=== PATIENT | female | born 1990 | race African-American/Black ===

== ENCOUNTER 2017-05-05 17:56 | Emergency (ER) | payer MEDICAID, OTHER ==
[~2017-05-05] VITALS: Ht 177.8 cm; Wt 131.0 kg
[~2017-05-05 17:56] MED LIST: HUMALOG; LANTIS
[2017-05-05] MEDS ORDERED: ONDANSETRON HCL 4MG/2ML VIAL IV STA (22:43)
[2017-05-05] MEDS ORDERED: SODIUM CHLORIDE 0.9% 1,000 ML IV ONE (22:43)
[2017-05-05] MEDS ORDERED: MORPHINE SULFATE 4 MG/ML CPJ (NOT FOR IM USE) IV STA (22:43)
[2017-05-05 23:22] LABS: CHLORIDE 99 mEq/L (98-107)
[2017-05-05 23:25] LABS: HEMATOCRIT. 43.8 % (36.0-48.0); HEMOGLOBIN. 14.6 g/dL (12.0-16.0); MEAN CORPUSCULAR HEMOGLOBIN 27.8 pg (28.0-32.0); MEAN CORPUSCULAR VOLUME 83.2 fL (81.0-99.0); RED BLOOD CELL COUNT 5.26 mill/uL (4.2-5.4)
[2017-05-05 23:26] LABS: CARBON DIOXIDE 24 mEq/L (21-32); INR 1.1; PROTHROMBIN TIME 10.9 sec (9.4-11.6)
[2017-05-05 23:47] LABS: HCG SCREEN NEGATIVE
[2017-05-06] MEDS ORDERED: INSULIN REGULAR (HUMULIN R) UD 100 UNITS/ML SYR IV ONE
[2017-05-06] MEDS ORDERED: MORPHINE SULFATE 4 MG/ML CPJ (NOT FOR IM USE) IV ONE (00:15)
[2017-05-06] MEDS ORDERED: ONDANSETRON HCL 4MG/2ML VIAL IV ONE (00:15)
[2017-05-06 00:21] LABS: GLUCOSE URINE 3+ (NEGATIVE); KETONES URINE 1+ (NEGATIVE); LEUKOCYTE ESTERASE URINE NEGATIVE (NEGATIVE); NITRITE URINE NEGATIVE (NEGATIVE); OCCULT BLOOD URINE NEGATIVE (NEGATIVE); PROTEIN URINE NEGATIVE (NEGATIVE); SPECIFIC GRAVITY URINE 1.035 (1.005-1.030); UROBILINOGEN URINE 0.2 E.U./dL (0.2-1.0)
[2017-05-06 00:31] LABS: CLARITY URINE CLEAR (CLEAR); COLOR URINE YELLOW (YELLOW)
[2017-05-06 00:40] LABS: *AMPHETAMINES SCREEN URINE NEGATIVE (NEGATIVE); *BARBITURATES SCREEN URINE NEGATIVE (NEGATIVE); *BENZODIAZEPINES SCREEN URINE NEGATIVE (NEGATIVE); *COCAINE SCREEN URINE NEGATIVE (NEGATIVE); METHADONE URINE SCREEN NEGATIVE (NEGATIVE); OPIATES URINE SCREEN NEGATIVE (NEGATIVE); PHENCYCLIDINE URINE SCREEN NEGATIVE (NEGATIVE)
[2017-05-06] MEDS ORDERED: INSULIN REGULAR (HUMULIN R) 300UNITS/3ML IV SCH (00:45)
[2017-05-06 00:54] LABS: CANNABINOID URINE SCREEN PRESUMTIVE POSITIVE (NEGATIVE)
[2017-05-06] MEDS ORDERED: METOCLOPRAMIDE HCL 10MG/2ML VIAL IV ONE (01:00)
[2017-05-06 04:11] LABS: PLATELET ESTIMATE NORMAL
[2017-05-06 04:20] LABS: PLATELET 282 x1000/uL (130-400)
[2017-05-06] MEDS ORDERED: VISCOUS LIDOCAINE 2% 15 ML UDC PO STA (05:10)
[2017-05-06] MEDS ORDERED: DICYCLOMINE 10 MG/5 ML ORAL SYR PO STA (05:10)
[2017-05-06] MEDS ORDERED: MAGNESIUM/ALUMINUM HYDROXIDE/SIMETHICONE 30ML UDC PO STA (05:10)
[2017-05-06 05:53] VITALS: BP 130/70
== END 2017-05-06 06:00 | disposition home or self-care (01) ==
LOC: ER 18:03
DX: R10.30 Lower abdominal pain, unspecified (principal); E11.9 Type 2 diabetes mellitus without complications; I10 Essential (primary) hypertension; F41.9 Anxiety disorder, unspecified; J45.909 Unspecified asthma, uncomplicated
CPT/HCPCS: 36415; 74176; 76856; 80053; 80305; 81001; 82962; 83690; 84703; 85025; 85610; 96361; 96374; 96375; 96376; 99285; J1815; J2270; J2405; J2765; J7030; Z7610

== ENCOUNTER 2018-03-24 13:30 | Inpatient (IN) | payer SELFPAY ==
[2018-03-23 21:40] VITALS: BP 157/97
[~2018-03-24] VITALS: Ht 172.7 cm; Wt 119.8 kg
[2018-03-24] MEDS ORDERED: SODIUM CHLORIDE 0.9% 1,000 ML IV ONE (13:46)
[2018-03-24] MEDS ORDERED: MORPHINE SULFATE 4 MG/ML CPJ (NOT FOR IM USE) IV STA (13:46)
[2018-03-24] MEDS ORDERED: ONDANSETRON HCL 4MG/2ML VIAL IV STA (13:46)
[2018-03-24] MEDS ORDERED: FAMOTIDINE 20MG/2ML VIAL IV STA (13:46)
[2018-03-24 14:52] LABS: INR 1.1; PROTHROMBIN TIME 10.7 sec (9.1-11.1)
[2018-03-24 14:53] LABS: CHLORIDE 100 mEq/L (98-107)
[2018-03-24 14:54] LABS: BASOPHILS % 0.8 % (0.0-2.0); EOSINOPHILS % 1.1 % (0.0-5.0); HEMATOCRIT. 41.9 % (36.0-48.0); HEMOGLOBIN. 14.1 g/dL (12.0-16.0); LYMPHOCYTES % 18.1 % (20.0-50.0); MEAN CORPUSCULAR HEMOGLOBIN 27.9 pg (28.0-32.0); MEAN CORPUSCULAR VOLUME 82.7 fL (81.0-99.0); MEAN PLATELET VOLUME 9.4 fl (7.4-10.4); PLATELET 287 x1000/uL (130-400); RED BLOOD CELL COUNT 5.06 mill/uL (4.2-5.4); RED CELL DISTRIBUTION WIDTH 13.6 % (11.6-14.6)
[2018-03-24 14:57] LABS: ETHANOL BLOOD < 10 mg/dL
[2018-03-24] MEDS ORDERED: LORAZEPAM 2MG/ML CPJ IV ONE (15:00)
[2018-03-24 15:01] LABS: HCG SCREEN NEGATIVE
[2018-03-24] MEDS ORDERED: LABETALOL 5MG/ML SYR 20 MG/4 ML SYRINGE IV ONE (15:45)
[2018-03-24] MEDS ORDERED: KCL 10MEQ/50ML PREMIX 50 ML IV ONE (16:45)
[2018-03-24] MEDS ORDERED: ENALAPRIL 2.5MG/2ML VIAL 2ML IV ONE (17:00)
[2018-03-24] MEDS ORDERED: DIATR MEGLU/DIATRIZOATE SOLN 120ML ONE (17:24)
[2018-03-24] MEDS ORDERED: IOHEXOL-300 100 ML BOTTLE ONE (17:25)
[2018-03-24 17:38] LABS: CLARITY URINE CLEAR (CLEAR); COLOR URINE YELLOW (YELLOW); KETONES URINE 1+ (NEGATIVE); LEUKOCYTE ESTERASE URINE NEGATIVE (NEGATIVE); NITRITE URINE NEGATIVE (NEGATIVE); OCCULT BLOOD URINE 1+ (NEGATIVE); PROTEIN URINE NEGATIVE (NEGATIVE); SPECIFIC GRAVITY URINE 1.011 (1.005-1.030); UROBILINOGEN URINE 0.2 E.U./dL (0.2-1.0)
[2018-03-24 17:52] LABS: *AMPHETAMINES SCREEN URINE NEGATIVE (NEGATIVE); *BARBITURATES SCREEN URINE NEGATIVE (NEGATIVE); *BENZODIAZEPINES SCREEN URINE NEGATIVE (NEGATIVE); *COCAINE SCREEN URINE NEGATIVE (NEGATIVE); METHADONE URINE SCREEN NEGATIVE (NEGATIVE)
[2018-03-24 17:53] LABS: PHENCYCLIDINE URINE SCREEN NEGATIVE (NEGATIVE)
[2018-03-24 18:03] LABS: CANNABINOID URINE SCREEN PRESUMTIVE POSITIVE (NEGATIVE); OPIATES URINE SCREEN PRESUMTIVE POSITIVE (NEGATIVE)
[2018-03-24] MEDS ORDERED: ENOXAPARIN 40MG/0.4ML SYR SUBCUT SCH (19:00)
[2018-03-24] MEDS ORDERED: NA PHOS,M-B/NA PHOS,DI-BA ENEMA 118ML PR PRN (19:00)
[2018-03-24] MEDS ORDERED: DIPHENHYDRAMINE 50MG/ML VIAL IV PRN (19:00)
[2018-03-24] MEDS ORDERED: IPRATROPIUM/ALBUTEROL 0.5-3(2.5)MG/3ML NEB INH PRN (19:00)
[2018-03-24] MEDS ORDERED: GUAIFENESIN 200MG/10ML SUGAR FREE UDC PO PRN (19:00)
[2018-03-24] MEDS ORDERED: CLONIDINE 0.1MG TABLET PO PRN (19:00)
[2018-03-24] MEDS ORDERED: MORPHINE SULFATE 4 MG/ML CPJ (NOT FOR IM USE) IV PRN (19:00)
[2018-03-24] MEDS ORDERED: LORAZEPAM 2MG/ML CPJ IV PRN (19:00)
[2018-03-24] MEDS ORDERED: HALOPERIDOL LACTATE 5MG/ML VIAL IM ONE (19:00)
[2018-03-24] MEDS ORDERED: DOCUSATE SODIUM 100MG CAPSULE PO PRN (19:00)
[2018-03-24] MEDS ORDERED: HYDROCODONE/ACETAMINOPHEN 5/325MG TABLET PO PRN (19:00)
[2018-03-24 22:15] VITALS: BP 151/95
[2018-03-24] MEDS: SODIUM CHLORIDE 0.45% 1,000 ML IV SCH (23:47)
[2018-03-25] VITALS (7 sets, daily range): BP systolic 122–150; BP diastolic 62–91
[2018-03-25] MEDS ORDERED: INSU100I28 SQ (00:08)
[2018-03-25] MEDS ORDERED: PROT40 PO (00:08)
[2018-03-25] MEDS ORDERED: INSLIS SUBCUT (00:08)
[2018-03-25] MEDS ORDERED: B50 PO (00:08)
[2018-03-25] MEDS ORDERED: METO10TA3 PO (00:08)
[2018-03-25] MEDS ORDERED: ALBUTEROL 6.7GM HFA INHALER ORI PRN (00:15)
[2018-03-25 00:27] LABS: CHLORIDE 101 mEq/L (98-107)
[2018-03-25] MEDS ORDERED: DEXTROSE 50% WATER 50ML SYRINGE IV PRN (01:15)
[2018-03-25] MEDS: HYDROMORPHONE HCL/PF 2MG/ML CPJ IV PRN ×2 (05:05→09:18)
[2018-03-25] MEDS: BLOOD SUGAR DIAGNOSTIC STRIP TEST SCH ×3 (06:16→18:23)
[2018-03-25] MEDS ORDERED: POTASSIUM CHLORIDE 20MEQ TABLET SR PO NR (07:45)
[2018-03-25] MEDS: INSULIN LISPRO 100 UNITS/ML SUBCUT SCH ×3 (08:41→18:24)
[2018-03-25] MEDS ORDERED: AMLODIPINE 10MG TABLET PO SCH (09:00)
[2018-03-25] MEDS ORDERED: ASPIRIN 81MG EC TABLET PO SCH (09:00)
[2018-03-25] MEDS ORDERED: LISINOPRIL 20MG TABLET PO SCH (09:00)
[2018-03-25] MEDS ORDERED: METOPROLOL TARTRATE 25MG TABLET PO SCH (09:00)
[2018-03-25] MEDS ORDERED: ENOXAPARIN 30MG/0.3ML SYR SUBCUT SCH (09:00)
[2018-03-25] MEDS: ONDANSETRON HCL 4MG/2ML VIAL IV PRN ×2 (09:19→16:08)
[2018-03-25] MEDS: MAGNESIUM/ALUMINUM HYDROXIDE/SIMETHICONE 30ML UDC PO PRN ×2 (10:30→19:28)
[2018-03-25 11:36] LABS: BASOPHILS % 0.6 % (0.0-2.0); EOSINOPHILS % 2.1 % (0.0-5.0); HEMATOCRIT. 39.7 % (36.0-48.0); HEMOGLOBIN. 13.3 g/dL (12.0-16.0); LYMPHOCYTES % 42.2 % (20.0-50.0); MEAN CORPUSCULAR HEMOGLOBIN 27.7 pg (28.0-32.0); MEAN CORPUSCULAR VOLUME 82.7 fL (81.0-99.0); MEAN PLATELET VOLUME 8.7 fl (7.4-10.4); MONOCYTES % 6.3 % (2.0-8.0); NEUTROPHILS % 48.8 % (40.0-76.0); PLATELET 294 x1000/uL (130-400); RED CELL DISTRIBUTION WIDTH 13.4 % (11.6-14.6)
[2018-03-25 12:02] LABS: CHLORIDE 99 mEq/L (98-107)
[2018-03-25 12:12] LABS: LDL CHOLESTEROL 125 mg/dL (5-100)
[2018-03-25 12:14] LABS: HDL CHOLESTEROL 38 mg/dL (40-59); T4 FREE 1.28 ng/dL (0.76-1.46)
[2018-03-25] MEDS ORDERED: POTASSIUM CHLORIDE INJ 40 MEQ in DEXT 5% WATER 250 ML IV NR (14:00)
[2018-03-25] MEDS: SODIUM CHLORIDE 0.45% 1,000 ML IV SCH (18:06)
== END 2018-03-25 20:05 | disposition home or self-care (01) | DRG 241 ==
LOC: ER 13:30 → 7WST 17:37 → EDBEDREQ 17:45 → EDBEDREQTM 17:45 → ENRESERV 19:42
PROVIDERS: ADMIT Internal Medicine; ATTEND Internal Medicine
DX: K29.70 Gastritis, unspecified, without bleeding (principal); E11.9 Type 2 diabetes mellitus without complications; I16.0 Hypertensive urgency; E87.6 Hypokalemia; F17.200 Nicotine dependence, unspecified, uncomplicated; J45.909 Unspecified asthma, uncomplicated; I10 Essential (primary) hypertension; K21.9 Gastro-esophageal reflux disease without esophagitis; F41.9 Anxiety disorder, unspecified; G89.29 Other chronic pain; Z79.4 Long term (current) use of insulin
CPT/HCPCS: 36415; 71045; 74177; 80048; 80053; 80061; 80305; 81003; 81025; 82962; 83690; 83880; 84439; 84443; 84484; 84703; 85025; 85610; 93005; 96361; 96374; 96375; 99291; G0482; J1170; J1650; J1815; J2060; J2270; J2405; J3480; J3490; J7030; J7040; J7050; J7060; Q9963; Q9967

== ENCOUNTER 2018-03-26 20:36 | Emergency (ER) | payer SELFPAY ==
[~2018-03-26] VITALS: Ht 177.8 cm; Wt 120.0 kg
[~2018-03-26 20:36] MED LIST changes: +B50 PO; -HUMALOG; +INSLIS SUBCUT; +INSU100I28 SQ; -LANTIS; +METO10TA3 PO; +PROT40 PO
[2018-03-26] MEDS ORDERED: ACETAMINOPHEN 500MG TABLET PO ONE (23:00)
[2018-03-26] MEDS ORDERED: IBUPROFEN 600MG TABLET PO ONE (23:00)
[2018-03-27 01:44] VITALS: BP 142/84
== END 2018-03-27 01:52 | disposition home or self-care (01) ==
LOC: ER 20:36
DX: S90.121A Contusion of right lesser toe(s) without damage to nail, initial encounter (principal); W22.8XXA Striking against or struck by other objects, initial encounter; Y93.01 Activity, walking, marching and hiking; Y92.832 Beach as the place of occurrence of the external cause; R03.0 Elevated blood-pressure reading, without diagnosis of hypertension; F12.90 Cannabis use, unspecified, uncomplicated
CPT/HCPCS: 73630; 99284

== ENCOUNTER 2018-06-24 13:45 | Emergency (ER) | payer SELFPAY ==
[~2018-06-24] VITALS: Ht 167.6 cm; Wt 80.0 kg
[2018-06-24] MEDS ORDERED: ONDANSETRON HCL 4MG/2ML INJ IV STA (14:06)
[2018-06-24] MEDS ORDERED: KETOROLAC 30MG/ML VIAL IV STA (14:06)
[2018-06-24] MEDS ORDERED: SODIUM CHLORIDE 0.9% 1,000 ML IV ONE (14:06)
[2018-06-24] MEDS ORDERED: LORAZEPAM 2MG/ML CPJ IV ONE (14:15)
[2018-06-24 15:21] LABS: HEMATOCRIT. 43.8 % (36.0-48.0); HEMOGLOBIN. 14.4 g/dL (12.0-16.0); MEAN CORPUSCULAR HEMOGLOBIN 27.5 pg (28.0-32.0); MEAN CORPUSCULAR VOLUME 83.5 fL (81.0-99.0); MEAN PLATELET VOLUME 8.9 fl (7.4-10.4); PLATELET 303 x1000/uL (130-400); RED BLOOD CELL COUNT 5.24 mill/uL (4.2-5.4); RED CELL DISTRIBUTION WIDTH 12.8 % (11.6-14.6)
[2018-06-24 15:22] LABS: CHLORIDE 103 mEq/L (98-107); HCG SCREEN NEGATIVE
[2018-06-24 15:28] LABS: ETHANOL BLOOD < 10 mg/dL
[2018-06-24 15:47] LABS: PLATELET ESTIMATE NORMAL
[2018-06-24] MEDS ORDERED: IOHEXOL-300 100 ML BOTTLE ONE (16:05)
[2018-06-24] MEDS ORDERED: MORPHINE SULFATE 4 MG/ML CPJ (NOT FOR IM USE) IV STA (16:13)
[2018-06-24 16:55] LABS: CLARITY URINE CLEAR (CLEAR); COLOR URINE YELLOW (YELLOW); KETONES URINE 3+ (NEGATIVE); LEUKOCYTE ESTERASE URINE NEGATIVE (NEGATIVE); NITRITE URINE NEGATIVE (NEGATIVE); OCCULT BLOOD URINE 3+ (NEGATIVE); PROTEIN URINE 2+ (NEGATIVE); SPECIFIC GRAVITY URINE 1.047 (1.005-1.030); UROBILINOGEN URINE 0.2 E.U./dL (0.2-1.0)
[2018-06-24 17:04] LABS: *AMPHETAMINES SCREEN URINE NEGATIVE (NEGATIVE); OPIATES URINE SCREEN NEGATIVE (NEGATIVE); PHENCYCLIDINE URINE SCREEN NEGATIVE (NEGATIVE)
[2018-06-24 17:05] LABS: *BARBITURATES SCREEN URINE NEGATIVE (NEGATIVE); *BENZODIAZEPINES SCREEN URINE NEGATIVE (NEGATIVE); *COCAINE SCREEN URINE NEGATIVE (NEGATIVE); METHADONE URINE SCREEN NEGATIVE (NEGATIVE)
[2018-06-24 17:09] LABS: CANNABINOID URINE SCREEN PRESUMTIVE POSITIVE (NEGATIVE)
[2018-06-24] MEDS ORDERED: PANTOPRAZOLE SODIUM 40 MG/VIAL IV NR (17:15)
[2018-06-24] MEDS: METOCLOPRAMIDE HCL 10MG/2ML VIAL IV NR ×2 (17:44→18:13)
[2018-06-24 18:37] VITALS: BP 154/94
== END 2018-06-24 19:08 | disposition home or self-care (01) ==
LOC: ER 13:45
DX: R10.9 Unspecified abdominal pain (principal); E11.9 Type 2 diabetes mellitus without complications; F41.9 Anxiety disorder, unspecified; F32.9 Major depressive disorder, single episode, unspecified; Z79.4 Long term (current) use of insulin
CPT/HCPCS: 36415; 74177; 80053; 80305; 81003; 83690; 84703; 85025; 96361; 96374; 96375; 99284; C9113; G0482; J1885; J2060; J2270; J2405; J2765; J7030; Q9967